=== PATIENT | female | born 1950 | race Caucasian/White ===

== ENCOUNTER 2020-08-25 12:14 | Outpatient (REF) | payer MEDICARE, OTHER, SELFPAY ==
[2020-08-25 13:59] LABS: MANUAL DIFF FLAG NO
[2020-08-25 14:11] LABS: Basophils Percent Auto 0.7 % (0-2); Eosinophils Absolute Auto 0.1 X10*3/uL (0.0-0.4); Eosinophils Percent Auto 1.1 % (0-4); Hematocrit 39.3 % (37-47); Imm Gran Abs Auto 0.02 X10*3/uL (0.00-0.03); Imm Gran Pct Auto 0.4 % (0.0-0.4); Lymphocytes Absolute Auto 1.7 X10*3/uL (1.2-4.9); Mean Corpuscular HGB Conc 33.1 g/dl (31.0-35.0); Mean Corpuscular Hemoglobin 30.4 pg (27.0-33.0); Mean Platelet Volume 9.2 fL (9.4-12.3); Monocytes Absolute Auto 0.4 X10*3/uL (0.1-1.2); Monocytes Percent Auto 8.9 % (2-11); Neutrophils Absolute Auto 2.4 X10*3/uL (2.0-8.3); Neutrophils Percent Auto 51.9 % (45-73); Platelet Count 242 X10*3/uL (160-400); Red Blood Count 4.27 X10*6/uL (4.20-5.50); Red Cell Distribution Width 12.8 % (11.0-16.0); White Blood Count 4.6 X10*3/uL (4.8-10.8)
[2020-08-25 14:29] LABS: Alanine Aminotransferase 28 U/L (0-31); Albumin Level 4.3 g/dL (3.5-5.0); Alkaline Phosphatase 39 U/L (39-117); Aspartate Amino Transferase 32 U/L (5-31); Bilirubin Direct 0.4 mg/dL (0.0-0.5); Bilirubin Total 1.2 mg/dL (0.0-1.0); C Reactive Protein 0.02 mg/dL (< or = 0.50); Total Protein 6.4 g/dL (6.5-8.0)
[2020-08-25 15:05] LABS: Erythrocyte Sedimentation Rate 2 MM/HR (0-20)
== END 2020-08-25 12:15 | disposition home or self-care (01) ==
LOC: HO.10HDL 12:14
PROVIDERS: Visit Provider Internal Medicine
DX: R19.7 Diarrhea, unspecified (principal)
CPT/HCPCS: 36415; 80076; 85025; 85652; 86140

== ENCOUNTER 2020-08-26 08:09 | Outpatient (REF) | payer MEDICARE, OTHER, SELFPAY ==
[2020-08-26 12:01] LABS: CDIFF Ag Negative (Negative); CDIFF Internal ctrl Dots and bkg OK (V); CDiff Toxin Negative (Negative)
[2020-08-26 12:31] LABS: Leukocytes Stool Qualitative NEGATIVE (NEGATIVE)
== END 2020-08-26 08:10 | disposition home or self-care (01) ==
LOC: HO.10HDLNP 08:09
PROVIDERS: Visit Provider Internal Medicine
DX: R19.7 Diarrhea, unspecified (principal)
CPT/HCPCS: 87045; 87046; 87177; 87209; 87324; 87329; 87449; 89055

== ENCOUNTER 2020-09-17 06:45 | Day surgery (SDC) | payer MEDICARE, OTHER, SELFPAY ==
[2020-09-12 11:34] VITALS: BMI 17.7
--- NOTE | 2020-09-15 14:15 | P.CONAN_ITS ---
Documented by User: Valentine Randall 09/15/20 14:16 HPI - Anesthesia Eval Consult details Narrative: 70yo F for Colonoscopy FOR[facility]LY [facility] Past Medical History Medical History History of colitis Lab test negative for COVID-19 virus Surgical History Surgical History H/O colonoscopy Social History Social History Are you a primary post anesthesia care unit nurse to a significant other at home: No Do you presently have visiting nurse or other home services: No Smoking Status: Never smoker Use of substances other than those prescribed or required for medical reasons: No Have you been hit, kicked, punched, or otherwise hurt by someone within the past year? If so, by whom?: No Advance Directives Information Provided: No Recently lost weight without trying: No Meds Allergies Allergy/AdvReac Type Severity Reaction Status Date / Time No Known Allergies Allergy Verified 09/12/20 11:38 [No Known Allergies*] Home Medications Medication Instructions Recorded Confirmed Last Taken Type cholecalciferol (vitamin D3) 25 mcg PO DAILY 09/12/20 09/12/20 Unknown History [Vitamin D3] magnesium gluconate 500 mg PO DAILY 09/12/20 09/12/20 Unknown History Exam Exam Date and Time: September 15, 2020 1415 Height,Weight and Vital Signs: Height 5 ft 6 in Weight 49.895 kg Pertinent Lab Results Pertinent Lab Results: Laboratory Tests 08/25/20 12:30 WBC 4.6 L Hgb 13.0 Hct 39.3 Plt Count 242 Assessment and Plan Assessment Anesthesia Assessment: Chart Reviewed Documented by User: Eden Sauceda 09/17/20 08:04 [facility] Past Medical History Medical History History of colitis Lab test negative for COVID-19 virus Surgical History Surgical History H/O colonoscopy Social History Social History Are you a primary post anesthesia care unit nurse to a significant other at home: No Do you presently have visiting nurse or other home services: No Smoking Status: Never smoker Use of substances other than those prescribed or required for medical reasons: No Have you been hit, kicked, punched, or otherwise hurt by someone within the past year? If so, by whom?: No Advance Directives Information Provided: No Recently lost weight without trying: No Meds Allergies Allergy/AdvReac Type Severity Reaction Status Date / Time No Known Allergies Allergy Verified 09/12/20 11:38 [No Known Allergies*] Home Medications Medication Instructions Recorded Confirmed Last Taken Type cholecalciferol (vitamin D3) 25 mcg PO DAILY 09/12/20 09/12/20 Unknown History [Vitamin D3] magnesium gluconate 500 mg PO DAILY 09/12/20 09/12/20 Unknown History Exam Airway Mallampati Class: II TM Dist: >3cm Neck ROM: Full
[2020-09-17 07:20] VITALS: BP 128/78; PULSE 58; RESP 16; TEMP 36.6; O2SAT 100
[2020-09-17] MEDS: Lactated Ringers 1,000 ML 100 ML IVCONT (07:24)
[2020-09-17 09:10] VITALS: BP 103/65; PULSE 66; RESP 15; TEMP 36.2; O2SAT 98
--- NOTE | 2020-09-17 09:13 | PM.OP ---
Brief Operative Note Date of Service: 09/17/20 Pre-op diagnosis: Change in bowels Post-op diagnosis: other (Diverticulosis, Internal/External hemorrhoids, Diminished sphincer tone) Procedure: Colonoscopy to the cecum Surgeon: Yong Ortiz Anesthesia: MAC Estimated blood loss (mL): 0 Pathology: none sent Condition: stable Disposition: PACU
[2020-09-17 09:24] VITALS: BP 99/68; PULSE 68; RESP 16; O2SAT 99
--- NOTE | 2020-09-17 09:36 | PC.NURSE ---
1230 DAVID PO MONITORS AND IVF DCD ASST OOB CH STEADY IV DC PRESSURE AND SRSG TO SITE DRESSED SELF AT BS CALL PSRING IN REACH PLAN TO AMB TO DC AREA
--- NOTE | 2020-09-17 09:54 | OP_ITS ---
SURGEON: Yong Ortiz MD INDICATIONS: The patient presents for evaluation of change in bowel habits and occasional fecal incontinence. Full consent has been obtained from her for this, including risks of bleeding and perforation. PREOPERATIVE DIAGNOSIS: POSTOPERATIVE DIAGNOSIS: PROCEDURE PERFORMED: Colonoscopy to the cecum. ESTIMATED BLOOD LOSS: COMPLICATIONS: ANESTHESIA: Monitored anesthesia care. ASSISTANTS: SPECIMENS: PREOPERATIVE DIAGNOSES: Change in bowel habits and occasional fecal incontinence. POSTOPERATIVE DIAGNOSES: Change in bowel habits, occasional fecal incontinence, diverticulosis, diminished sphincter tone, and internal hemorrhoids. DESCRIPTION OF PROCEDURE: The patient was placed in the left lateral decubitus position. The digital rectal exam did reveal diminished sphincter tone as well as some hemorrhoidal tissue. The Olympus video pediatric colonoscope was entered into the rectum and advanced to the cecum with the assistance of abdominal wall pressure. Once in the cecum I did identify normal-appearing cecal pouch with appendiceal orifice and a normal-appearing ileocecal valve. There was transillumination of light deep in the right lower quadrant. The entire cecum and ileocecal valve appeared normal. The scope was slowly withdrawn assessing all mucosal surfaces carefully. Preparation was excellent. I did not visualize any sign of polyps, colitis, nor angiodysplasia. There was a mild amount of sigmoid diverticulosis. In the rectum, scope was retroflexed visualizing some internal hemorrhoids, but no other pathology. The rectal mucosa appeared normal. The scope was straightened and withdrawn from the patient. She tolerated the procedure well and was returned to recovery area in stable condition. IMPRESSION: 1. Sigmoid diverticulosis. 2. Internal and external hemorrhoids. 3. Diminished sphincter tone. PLAN: Given the negative exam, and a negative colonoscopy in 2017, as well as no family history of colorectal cancer, I do not think she will need any further screening colonoscopies. In regard to her occasional symptoms of incontinence, this may be difficult to treat from a symptomatic standpoint since the episodes are infrequent and unpredictable. I did recommend that she consider adding a little Metamucil or Citrucel to her regimen to see if that can help decrease any liquid component to the stool and add some bulk. She will be seen in two or three months for a followup visit. If her symptoms persist and prove problematic, then I would recommend referring her to one of the colorectal surgeons in [place] to see if they might have any advice since I feel her diminished sphincter tone plays a role in these symptoms.. MD BRIDGETT Doherty/SARAH / [id number] KEKE
== END 2020-09-17 09:52 | disposition home or self-care (01) ==
PROVIDERS: PCP Family Medicine; Visit Provider Internal Medicine
PROC: 0DJD8ZZ Inspection of Lower Intestinal Tract, Via Natural or Artificial Opening Endoscopic (ICD-10-PCS; CPT 45378; principal; 2020-09-17 08:10)
DX: R19.4 Change in bowel habit (principal); R15.9 Full incontinence of feces; K62.89 Other specified diseases of anus and rectum; K57.30 Diverticulosis of large intestine without perforation or abscess without bleeding; K64.8 Other hemorrhoids; K64.4 Residual hemorrhoidal skin tags
CPT/HCPCS: 45378

== ENCOUNTER 2021-03-27 08:39 | Outpatient (REF) | payer MEDICARE, OTHER, SELFPAY ==
--- NOTE | ~2021-03-27 | MM_ITS ---
EXAMINATION: MM SCREENING DIGITAL BREAST TOMOSYNTHESIS, BILATERAL CLINICAL INFORMATION: Screening. Asymptomatic. The lifetime risk of breast cancer based on the Tyrer-Cuzick Model is 3%. COMPARISON: Mammography: 03/21/2020, 10/13/2018, 09/28/2017, 09/19/2017 TECHNIQUE: Digital breast tomosynthesis is performed in both the craniocaudal and mediolateral oblique views along with computer-aided detection (CAD). Synthesized 2D images are generated from the tomosynthesis. FINDINGS: The breasts are heterogeneously dense, which may obscure small masses (ACR BI-RADS breast composition Category c). There are no significant masses, abnormal calcifications, or other abnormalities. There is no developing density. No interval mass or architectural abnormality. Again, there is a biopsy clip marker mid 12:00 left breast adjacent to small stable nodule. MM/MM tomosynthesis screening BI IMPRESSION: No mammographic evidence of malignancy. ASSESSMENT: BI-RADS 2: Benign RECOMMENDATION: Routine annual mammography screening. This patient's information was entered into a reminder system with a target due date for their next mammogram.
== END 2021-03-27 08:40 | disposition home or self-care (01) ==
LOC: HO.MAMMO 08:39
PROVIDERS: PCP Family Medicine; Visit Provider Family Medicine
DX: Z12.31 Encounter for screening mammogram for malignant neoplasm of breast (principal)
CPT/HCPCS: 77063; 77067

== ENCOUNTER 2022-01-06 07:50 | Outpatient (REF) | payer MEDICARE, OTHER, SELFPAY ==
--- NOTE | ~2022-01-06 | MM_ITS ---
EXAMINATION: MM DIAGNOSTIC DIGITAL BREAST TOMOSYNTHESIS, BILATERAL US DIAGNOSTIC ULTRASOUND BREAST, LEFT CLINICAL INFORMATION: 2 month history intermittent pain left breast 1:00-3:00, 9:00-10:00, and axilla. No known family history breast cancer. The lifetime risk of breast cancer based on the Tyrer-Cuzick Model is 3%. COMPARISON: Mammography: 03/27/2021, 03/21/2020, 10/13/2018, 09/28/2017 TECHNIQUE: Digital breast tomosynthesis is performed in both the craniocaudal and mediolateral oblique views along with computer-aided detection (CAD). Synthesized 2D images are generated from the tomosynthesis. Additional right CC view is provided. Ultrasound left breast is targeted to the areas of clinical concern. Additional imaging also performed left axilla. Grayscale imaging and color Doppler are performed without and with harmonics. FINDINGS: The breasts are heterogeneously dense, which may obscure small masses (ACR BI-RADS breast composition Category c). Parenchymal pattern is similar to prior studies. There is no interval mass or architectural abnormality or developing density. No abnormal calcifications. Biopsy clip marker again noted mid 12:00 left breast. There is no adenopathy. No skin thickening or retraction or coarsening of the Hernan's ligaments. Ultrasound demonstrates no cystic or solid mass, architectural abnormality, or focal duct ectasia. No skin thickening or edema tracking in soft tissue planes. No adenopathy left axilla. Results are discussed with the patient at time of visit. MM/MM tomosynthesis diagnostic BI IMPRESSION: -No mammographic evidence of malignancy or inflammatory changes. -Unremarkable ultrasound left breast and axilla. ASSESSMENT: BI-RADS 2: Benign RECOMMENDATION: 1. Patient's intermittent left mastodynia should be managed based on the clinical impression. 2. Otherwise, routine annual screening mammography. This patient's information was entered into a reminder system with a target due date for their next mammogram.
== END 2022-01-06 07:51 | disposition home or self-care (01) ==
LOC: HO.MAMMO 07:50
PROVIDERS: Visit Provider Nurse Practitioner
DX: N64.4 Mastodynia (principal)
CPT/HCPCS: 76642; 77062; 77066

== ENCOUNTER 2022-07-06 06:33 | Outpatient (REF) | payer MEDICARE, OTHER, SELFPAY ==
[2022-07-06 07:57] LABS: Anion Gap 13 (12-20); Blood Urea Nitrogen 21 mg/dL (9-16); Calcium 9.2 mg/dL (8.4-10.2); Carbon Dioxide 24 mmol/L (22-29); Chloride 105 mmol/L (96-108); Cholesterol 207 mg/dL; Estimated Glomerular Filt Rate > 60; Glucose Random 79 mg/dL (60-115); HDL Cholesterol 83 mg/dL; LDL Cholesterol Calculated 114 mg/dl; Potassium 4.2 mmol/L (3.3-5.1); Sodium 138 mmol/L (135-145); Triglycerides 53 mg/dL
== END 2022-07-06 06:34 | disposition home or self-care (01) ==
LOC: HO.LAB 06:33
PROVIDERS: PCP Family Medicine; Visit Provider Family Medicine
DX: Z00.00 Encounter for general adult medical examination without abnormal findings (principal)
CPT/HCPCS: 36415; 80048; 80061

== ENCOUNTER 2022-07-13 07:53 | Outpatient (REF) | payer MEDICARE, OTHER, SELFPAY ==
--- NOTE | ~2022-07-13 | MM_ITS ---
EXAMINATION: BONE DENSITOMETRY CLINICAL INDICATION: Osteopenia. COMPARISON: Previous BD dated 02/01/2019 and baseline BD dated 08/29/2006. TECHNIQUE: Using a [employer] DXA System (software version: 13.1) manufactured by [employer], dual-energy x-ray absorptiometry was performed of the lumbar spine and left hip. The images are of good technical quality. Summary results are attached. FINDINGS: AP SPINE L1-L2 (excluding L3 and L4): The data of L1-L4 has been changed to exclude the L3 and L4 vertebral bodies, because degenerative changes at these levels may cause overestimation of lumbar spine density. Current: BMD 0.921 g/cm2, Z-score 0.2, T-score -2.0, osteopenia, 1.3% increase from previous, 4.4% decrease from baseline (<5% change is not significant). Prior: BMD 0.909 g/cm2. Baseline: BMD 0.963 g/cm2. LEFT FEMUR, NECK: Current: BMD 0.775 g/cm2, Z-score 0.3, T-score -1.9, osteopenia. Prior: BMD 0.834 g/cm2. Baseline: BMD 0.960 g/cm2. LEFT FEMUR, TOTAL: Current: BMD 0.743 g/cm2, Z-score -0.1, T-score -2.1, osteopenia, 10.2% decrease from previous, 25.6% decrease from baseline (<5% change is not significant). Prior: BMD 0.827 g/cm2. Baseline: BMD 0.998 g/cm2. IDENTIFIED RISK FACTORS: Menopause. HISTORY OF FRACTURE: None listed. MEDICATIONS: Vitamin D. MM/XR DEXA axial skeleton IMPRESSION: 1. DIAGNOSIS: Osteopenia based on the lowest T-score value of -2.1 in the total femur applying World Health Organization criteria. 2. 10-YEAR FRACTURE RISK PREDICTION, FRAX: Major osteoporotic fracture (clinical spine, forearm, hip or shoulder) 10.0%. Hip fracture 2.4%. 3. Treatment Recommendations: NOF guidelines recommend consideration for treatment in postmenopausal women and men age 50 and older presenting with the following: -A hip or vertebral (clinical or morphometric) fracture. -T-score less than or equal to -2.5 at the femoral neck or spine after appropriate evaluation to exclude secondary causes. -Low bone mass at the hip or spine and a 10-year fracture probability by FRAX of greater than or equal to 3% for hip fracture or greater than or equal to 20% for major osteoporotic fracture based on the [place] adapted WHO algorithm. 4. Other Recommendations: All treatment decisions require clinical judgment and consideration of individual patient factors, including patient preferences, comorbidities, previous drug use, risk factors not captured in the FRAX model (e.g. frailty, falls, vitamin D deficiency, increased bone turnover, interval significant decline in bone density) and possible under or overestimation of fracture risk by FRAX. Additional medical evaluation for secondary cause of low bone mineral density may be appropriate. FUTURE SCAN RECOMMENDATION: People with diagnosed cases of osteoporosis or at high risk for fracture should have regular bone mineral density tests. For patients eligible for Medicare, routine testing is allowed once every 2 years. The testing frequency can be increased to one year for patients who have rapidly progressing disease, those who are receiving or discontinuing medical therapy to restore bone mass, or have additional risk factors.
== END 2022-07-13 07:54 | disposition home or self-care (01) ==
LOC: HO.MAMMO 07:53
PROVIDERS: PCP Family Medicine; Visit Provider Family Medicine
DX: Z13.820 Encounter for screening for osteoporosis (principal); Z78.0 Asymptomatic menopausal state; M85.80 Other specified disorders of bone density and structure, unspecified site
CPT/HCPCS: 77080

== ENCOUNTER 2023-01-17 09:50 | Outpatient (REF) | payer MEDICARE, OTHER, SELFPAY ==
--- NOTE | ~2023-01-17 | MM_ITS ---
EXAMINATION: MM SCREENING DIGITAL BREAST TOMOSYNTHESIS, BILATERAL CLINICAL INFORMATION: Screening. Asymptomatic. The lifetime risk of breast cancer based on the Tyrer-Cuzick Model is 10%. COMPARISON: None (current study represents initial baseline exam). TECHNIQUE: Digital breast tomosynthesis is performed in both the craniocaudal and mediolateral oblique views along with computer-aided detection (CAD). Synthesized 2D images are generated from the tomosynthesis. Additional left MLO view provided. FINDINGS: The breasts are heterogeneously dense, which may obscure small masses (ACR BI-RADS breast composition Category c). There are no significant masses, abnormal calcifications, or other abnormalities. Parenchymal pattern is similar to prior studies. There is no developing density or architectural abnormality. No architectural abnormality or developing density or significant change from prior studies. There are scattered shifting fibroglandular parenchymal densities related to variation in positioning. No developing density or significant changes. The axilla and skin contours are unremarkable. No significant changes. MM/MM tomosynthesis screening BI IMPRESSION: No significant changes from prior exam. ASSESSMENT: BI-RADS 0: Incomplete - Need Additional Imaging Evaluation RECOMMENDATION: 1. Additional views left breast: Magnification CC magnification ML. 2. Radiology department staff will contact the patient for additional imaging. This patient's information was entered into a reminder system with a target due date for their next mammogram.
== END 2023-01-17 09:51 | disposition home or self-care (01) ==
LOC: HO.MAMMO 09:50
PROVIDERS: PCP Family Medicine; Visit Provider Family Medicine
DX: Z12.31 Encounter for screening mammogram for malignant neoplasm of breast (principal)
CPT/HCPCS: 77063; 77067

== ENCOUNTER 2024-01-23 07:19 | Outpatient (REF) | payer MEDICARE, OTHER, SELFPAY ==
--- NOTE | ~2024-01-23 | MM_ITS ---
EXAMINATION: MM SCREENING DIGITAL BREAST TOMOSYNTHESIS, BILATERAL CLINICAL INFORMATION: Screening. Asymptomatic. COMPARISON: Mammography: This study is compared with prior exams dating back to 2019. TECHNIQUE: Digital breast tomosynthesis is performed in both the craniocaudal and mediolateral oblique views along with computer-aided detection (CAD). Synthesized 2D images are generated from the tomosynthesis. FINDINGS: There are scattered areas of fibroglandular density (ACR BI-RADS breast composition Category b). In the superior aspect of the right breast, at a middle depth, there is an asymmetry which warrants additional mammographic and targeted sonographic imaging. In the left breast, there are no significant masses, abnormal calcifications, or other abnormalities. There is a biopsy tissue marker in the left breast. MM/MM tomosynthesis screening BI IMPRESSION: Asymmetry of the right breast warrants additional mammographic and targeted sonographic imaging. No mammographic signs of malignancy left breast. ASSESSMENT: BI-RADS BI-RADS 0 - Incomplete: Needs additional Imaging. RECOMMENDATION: 1. Additional views of the right breast. 2. Targeted ultrasound if warranted after review of the additional views. 3. Radiology department staff will contact the patient for additional imaging. Additional Imaging required This examination should not preclude the clinical evaluation of a suspicious palpable abnormality. This patient's information was entered into a reminder system with a target due date for their next mammogram.
== END 2024-01-23 07:20 | disposition home or self-care (01) ==
LOC: HO.MAMMO 07:19
PROVIDERS: PCP Family Medicine; Visit Provider Family Medicine
DX: Z12.31 Encounter for screening mammogram for malignant neoplasm of breast (principal)
CPT/HCPCS: 77063; 77067

== ENCOUNTER → 2024-01-23 07:30 | Outpatient (BNV) | payer MEDICARE, OTHER, SELFPAY | PROVIDERS: PCP Family Medicine; Visit Provider Radiology Diagnostic Radiology | DX: Z12.31 Encounter for screening mammogram for malignant neoplasm of breast (principal) | CPT/HCPCS: 77063; 77067 ==

== ENCOUNTER 2024-02-29 07:49 | Outpatient (REF) | payer MEDICARE, OTHER, SELFPAY ==
--- NOTE | ~2024-02-29 | US_ITS ---
EXAMINATION: MM DIAGNOSTIC DIGITAL BREAST TOMOSYNTHESIS, RIGHT US BREAST LIMITED, RIGHT MAMMOGRAPHY: CLINICAL INFORMATION: Diagnostic follow-up for asymmetry superior right breast seen on MLO projection. COMPARISON: Mammography: 01/23/2024, 01/17/2023, 01/06/2022, 03/27/2021, and exams dating back to 2018. TECHNIQUE: Digital right breast tomosynthesis is performed in the following views: Full-field 3-D right ML view, and 3-D spot compression right MLO view. This was followed by targeted right breast ultrasound to the axillary tail region. FINDINGS: The breasts are heterogeneously dense, which may obscure small masses (ACR BI-RADS breast composition Category c). Diagnostic views demonstrate no persistent mass or architectural distortion in the upper outer right breast. The finding appears to be related to superimposition artifact of overlying normal breast tissues. To be cautious, we will evaluate this region with ultrasound. No additional abnormality seen in the right breast. ULTRASOUND: CLINICAL INFORMATION: As above. COMPARISON: None contributory. TECHNIQUE: Targeted sonographic evaluation was performed using a high frequency linear transducer. Attention was given to the upper outer right breast, axillary tail region. Selected archived documentation. FINDINGS: RIGHT BREAST: There is a mixture of fatty and fibroglandular tissue. No suspicious mass is seen. There is no pathologic acoustic shadowing. There is no cystic abnormality. Prominent island of tissue is noted in the axillary tail region, accounting for the asymmetric density seen on the MLO and ML views. Finding is benign. There are no suspicious findings. US/US breast RT limited mamm only IMPRESSION: There are no findings suspicious for malignancy in the right breast. There are benign findings as discussed above. Recommend patient return to routine annual screening mammography. OVERALL ASSESSMENT: Mammography: BI-RADS 2 - Benign Findings Ultrasound: BI-RADS 2 - Benign Findings RECOMMENDATION: 1 year F/U This patient's information was entered into a reminder system with a target due date for their next mammogram.
== END 2024-02-29 07:50 | disposition home or self-care (01) ==
LOC: HO.MAMMO 07:49
PROVIDERS: PCP Family Medicine; Visit Provider Family Medicine
DX: R92.8 Other abnormal and inconclusive findings on diagnostic imaging of breast (principal)
CPT/HCPCS: 76642; 77061; 77065

== ENCOUNTER → 2024-02-29 08:00 | Outpatient (BNV) | payer MEDICARE, OTHER, SELFPAY | PROVIDERS: PCP Family Medicine; Visit Provider Radiology Diagnostic Radiology | DX: R92.8 Other abnormal and inconclusive findings on diagnostic imaging of breast (principal) | CPT/HCPCS: 76642; 77065; G0279 ==

== ENCOUNTER 2024-05-28 08:24 | Outpatient (REF) | payer MEDICARE, OTHER, SELFPAY ==
[2024-05-28 09:49] LABS: Leukocytes Stool Qualitative NEGATIVE (NEGATIVE)
[2024-05-28 16:36] LABS: Adenovirus F 40/41 Not Detected (Not Detect.); Astrovirus Not Detected (Not Detect.); Campylobacter Not Detected (Not Detect.); Cryptosporidium Not Detected (Not Detect.); Cyclospora cayetanensis Not Detected (Not Detect.); E. coli EAEC Detected (Not Detect.); E. coli EPEC Not Detected (Not Detect.); E. coli ETEC Not Detected (Not Detect.); E. coli STEC Not Detected (Not Detect.); Entamoeba histolytica Not Detected (Not Detect.); Giardia lamblia Not Detected (Not Detect.); Norovirus GI/GII Not Detected (Not Detect.); Plesiomonas shigelloides Not Detected (Not Detect.); Rotavirus A Not Detected (Not Detect.); Salmonella Not Detected (Not Detect.); Sapovirus Not Detected (Not Detect.); Shigella sp./EIEC Not Detected (Not Detect.); Vibrio Not Detected (Not Detect.); Vibrio Cholerae Not Detected (Not Detect.); Yersinia enterocolitica Not Detected (Not Detect.)
[2024-06-07 02:13] LABS: Calprotectin, Fecal 55 mcg/g
== END 2024-05-28 08:25 | disposition home or self-care (01) ==
LOC: HO.LNP 08:24
PROVIDERS: Visit Provider Internal Medicine
DX: R19.7 Diarrhea, unspecified (principal)
CPT/HCPCS: 83993; 87493; 87507; 89055

== ENCOUNTER 2024-08-22 08:28 | Outpatient (REF) | payer MEDICARE, OTHER, SELFPAY ==
--- NOTE | ~2024-08-22 | MM_ITS ---
EXAMINATION: DXA BONE DENSITY AXIAL HISTORY: Estrogen deficiency TECHNIQUE: [employer] Dual energy absorptiometry (DEXA) of the lumbar spine, total left hip, and femoral neck was performed. COMPARISON: Comparison is made with the prior examination dated 07/13/2022. FINDINGS: The bone mineral density of the lumbar spine is 0.855 with a T-score of -2.6, and a Z-score of -0.3. This represents a BMD change of -7.2% compared to the prior exam. This is statistically significant. The bone mineral density of the left total hip is 0.765 with a T-score of -1.9, and a Z-score of 0.2. This represents BMD change of 3.0% compared to the prior exam. This is not statistically significant. The bone mineral density of the left femoral neck is 0.747 with a T-score of -2.1, and a Z-score of 0.2. This represents BMD change of -3.6% compared to the prior exam. MM/XR DEXA axial skeleton IMPRESSION: Based on bone mineral density, and according to World Health Organization (WHO) criteria, the diagnosis is consistent with osteoporosis. All bone density values are in grams per centimeter squared (g/cm2). Statistically, 68% of repeat scans fall within 1 SD (+/- 0.010 g/cm2 for AP spine L1-L4) and 1 SD (+/- 0.012 g/cm2 for femur total) FRAX is a trademark of the [employer]'s [place] for Metabolic Bone Disease, a World Health Organization (WHO) Collaborating Center. Electronically signed by: Yong Gamble MD 08/27/2024 11:43 AM [facility]
--- OUTSIDE RECORDS SUMMARY | 2024-08-22 08:44 | XMS_ITS | Patient Health Record ---
Author Organization [facility] Address [address] [place] [address] Care Team Providers Care Interactive Media Marketing Strategist Name Role Phone MARYBEL ALBERTS DO Primary Care Provider Yong Calderon Unavailable [phone] JOHNNIEONEL KENYON Unavailable Unavailable ALLERGIES No Known Allergies RESULTS Component Value Reference Range Notes Calprotectin, Fecal Reviewed date:07/07/2024 09:32:11 AM Interpretation: Performing Lab:[facility], [address] [place] [phone] Notes/Report: Calprotectin, Fecal 55 Reference Range: <50 Normal 50-120 Borderline >120 Elevated Calprotectin in Crohn's disease and ulcerative colitis can be five to several thousand times above the reference population (50 mcg/g or less). Levels are usually 50 mcg/g or less in healthy patients and with irritable bowel syndrome. Repeat testing in 4-6 weeks is suggested for borderline values. THIS TEST WAS PERFORMED AT: [facility] [address] [place] [address] CINTHIA LOPEZ MD,PHD,GEOVANNY GI PANEL Reviewed date:05/29/2024 09:00:49 AM Interpretation: Performing Lab:[address] [phone] Notes/Report: Campylobacter Not Detected Not Detect. Plesiomonas shigelloides Not Detected Not Detect. Salmonella Not Detected Not Detect. Vibrio Not Detected Not Detect. Vibrio Cholerae Not Detected Not Detect. Yersinia enterocolitica Not Detected Not Detect. E. coli EAEC Detected Not Detect. E. coli EPEC Not Detected Not Detect. E. coli ETEC Not Detected Not Detect. E. coli STEC Not Detected Not Detect. E. coli O157 Not applicable Not Detect. E. coli containing the O157 antigen are a subset of Shiga-like toxin-producing E. coli (STEC). Shigella sp./EIEC Not Detected Not Detect. Cryptosporidium Not Detected Not Detect. Cyclospora cayetanensis Not Detected Not Detect. Entamoeba histolytica Not Detected Not Detect. Giardia lamblia Not Detected Not Detect. Adenovirus F 40/41 Not Detected Not Detect. Astrovirus Not Detected Not Detect. Norovirus GI/GII Not Detected Not Detect. Rotavirus A Not Detected Not Detect. Sapovirus Not Detected Not Detect. All results must be correlated with clinical findings. Negative results do not exclude the possibility of gastrointestinal infection and should not be used as the sole basis for diagnosis, treatment, or other management decisions. Virus, bacteria, and parasite nucleic acid may persist in vivo independently of organism viability. Additionally, some organisms may be carried asymptomatically. Detection of organism targets does not imply that the corresponding organisms are infectious or are the causative agents for clinical symptoms. There is a risk of false negative values due to the presence of sequence variants in the gene targets of the assay, amplification inhibitors in specimens, or inadequate numbers of organisms for amplification. The identification of several diarrheagenic E. coli pathotypes has historically relied upon phenotypic characteristics. This panel targets genetic determinants characteristic of most pathogenic strains, but may not detect all strains having phenotypic characteristics of a pathotype. The performance of this test has not been established for monitoring treatment of infection with any of the panel organisms. This assay is performed by Multiplexed PCR, utilizing the [employer]-box Array. Leukocytes Stool Qualitative Reviewed date:05/28/2024 02:38:08 PM Interpretation: Performing Lab:[address] [phone] Notes/Report: Leukocytes Stool Qualitative NEGATIVE NEGATIVE CDiff Gene PCR Reviewed date:05/28/2024 10:48:07 PM Interpretation: Performing Lab:[address] [phone] Notes/Report: CDiff Gene PCR TNP Negative INVALID X2. NOTIFIED TAYLOR FROM PROVIDER'S OFFICE 05/28 AT 1518. REASON FOR REFERRAL No Information MEDICATIONS Medication SIG (Take, Route, Fr equency, Duration) Notes Start Date End Date Status Vitamin D 1000 UNIT 1 tablet Orally Once a day Active IMMUNIZATIONS Vaccine Route Administration Date Status Comme nts Influenza Unknown 03/25/2017 Administered Influenza Unknown 04/24/2020 Administered SOCIAL HISTORY Tobacco Use: Social History Observation Description Date Details (start date - stop date) Never Smoker NA - NA Sex Assigned At : Social History Observation Description Sex Assigned At Unknown Tobacco Use/Smoking Question Answer Notes Patient is a nonsmoker Alcohol Screen Question Answer Notes Did you have a drink contain ing alcohol in the past year? Yes How often did you have a dri nk containing alcohol in the past year? 4 or more times a week (4 points) How many drinks did you have on a typical day when you were drinking in the past year? 1 or 2 drinks (0 point) How often did you have 6 or more drinks on one occasion in the past year? Never (0 point) Points 4 Interpretation Positive PROBLEMS Problem Type ICD Code Onset Dates Problem Status W/U Status Risk SNOMED Code Notes Problem Acute colitis (K52.9) Active confirmed 819726767 Problem Diarrhea, unspecified type (R19.7) Active confirmed 43227517 Problem Blood in stool (K92.1) Active confirmed 40665341 Problem Weight loss (R63.4) Active confirmed 30095377 Problem Abdominal cramps (R10.9) Active confirmed 416063030 Problem Diarrhea (R19.7) Active confirmed Diarr hea (08447158) Problem Change in bowel habits (R19.4) Active confirmed Change in bow el habit (22037160) Problem Full incontinence of feces (R15.9) Active confirmed Incontinence o f feces (64447157) Problem Fecal soiling due to fecal incontinence (R15.9) Active confirmed 121048147136661 Problem Chronic diarrhea (K52.9) Active confirmed Chronic diarrhe a (889630575) Encounters Encounter Location Date Provider Diagnosis [facility] [address] [place] [address] 05/24/2024 Yong Ortiz Diarrhea R19.7 [facility] [address] [place] [address] 05/28/2024 Yong Ortiz Chronic diarrhea K52.9 [facility] [address] [place] [phone] 05/28/2024 Yong Ortiz ASSESSMENTS Encounter Date Diagnosis Assessment Notes Treatment Notes Treatment Clinical Notes 05/24/2024 Diarrhea (ICD-10 - R19.7) 05/28/2024 Chronic diarrhea (ICD-10 - K52.9) PLAN OF TREATMENT Pending Test Test Name Order Date LIVER PROFILE 08/24/2020 LIVER PROFILE 07/12/2017 CRP 08/24/2020 CRP 07/12/2017 CBC w DIFF 08/24/2020 CBC with MANUAL DIFFERENTIAL 07/12/2017 SED RATE (ESR) 07/12/2017 SED RATE (ESR) 08/24/2020 CELIAC PANEL #10 07/12/2017 GIARDIA AG, STOOL EIA 08/24/2020 OVA & PARASITES (O&P) 08/24/2020 CULTURE, STOOL 08/24/2020 STOOL WBC 05/24/2024 STOOL WBC 08/24/2020 C DIFFICILE RFLX PCR 05/24/2024 C DIFFICILE RFLX PCR 05/28/2024 C DIFFICILE RFLX PCR 08/24/2020 Future Test Test Name Order Date COLONOSCOPY 07/07/2017 COLONOSCOPY 08/27/2020 Insurance Providers Payer Name Payer Address Payer Phone Subscriber Number Group Number Insured Name Patient Relationship to Insured Coverage Start Date Coverage End Date MEDICARE OF [place] [address] [place] [address] [id number] JAZMINE LERNER Self - patient is the insured [facility] [address] [place] [address] [id number] JAZMINE LERNER Self - patient is the insured MEDICAL (GENERAL) HISTORY Medical History History ICD Code Denies DC,DM,CVA,Lung disease,renal dise ase Acute colitis-admitted to [facility] on 06/24/17--CT scan showed evidence of apparent colitis extending from the rectum to the distal transverse colon--- stool specimens were not collected--she was treated with Levaquin and Flagyl--- a colonoscopy later in 06/2017 was completely normal, including biopsies--there was no evidence of any ongoing colitis. Screening Colonoscopy in 201 4 in [place]--told of polyps and need to repeat the exam in 5 years Negative colonoscopy in 09/13 21 except for decreased sphincer tone, internal/external hemorhoids, and diverticulosis Negtive antigliadin antibodies in 2017 Surgical History Surgery Date(Month/Year)
--- OUTSIDE RECORDS SUMMARY | 2024-08-22 08:44 | XMS_ITS ---
Author Organization [facility] Address [address] [place] [address] Care Team Providers Care Residential Counselor Name Role Phone MARYBEL ALBERTS DO Primary Care Provider Unava ilable Yong Ortiz Unavailable [phone] ONEL BARNETT Unavailable Unavailable Encounters Encounter Location Date Provider Diagnosis [facility] [address] [place] [address] 05/28/2024 Yong Ortiz PLAN OF TREATMENT No Information
--- OUTSIDE RECORDS SUMMARY | 2024-08-22 08:44 | XMS_ITS ---
Author Organization [facility] Address [address] [place] [address] Care Team Providers Care Medical Lead Name Role Phone MARYBEL ALBERTS DO Primary Care Provider Yong Calderon Unavailable [phone] ONEL BARNETT Unavailable Unavailable RESULTS Component Value Reference Range Notes Calprotectin, Fecal Reviewed date:07/07/2024 09:32:11 AM Interpretation: Performing Lab:[facility], [address] [place] [phone] Notes/Report: Calprotectin, Fecal 55 Reference Range: <50 [...] borderline values. THIS TEST WAS PERFORMED AT: [facility] [address] [place] [address] CINTHIA LOPEZ MD,PHD,GEOVANNY GI PANEL Reviewed date:05/29/2024 09:00:49 AM Interpretation: Performing Lab:[facility], [address] [place] [phone] Notes/Report: Campylobacter Not Detected Not Detect. Plesiomonas [...] is performed by Multiplexed PCR, utilizing the [employer] Array. REASON FOR VISIT stomach not right Encounters Encounter Location Date Provider Diagnosis [facility] [address] [facility] [address] [place] [address] 05/24/2024 Yong Ortiz Diarrhea R19.7 ASSESSMENTS Encounter Date Diagnosis Assessment Notes Treatment Notes Treatment Clinical Notes 05/24/2024 Diarrhea (ICD-10 - R19.7) PLAN OF TREATMENT Pending Test Test Name Order Date STOOL WBC 05/24/2024 C DIFFICILE RFLX PCR 05/24/2024
== END 2024-08-22 08:29 | disposition home or self-care (01) ==
LOC: HO.MAMMO 08:28
PROVIDERS: PCP Family Medicine; Visit Provider Family Medicine
DX: Z13.820 Encounter for screening for osteoporosis (principal); M85.89 Other specified disorders of bone density and structure, multiple sites
CPT/HCPCS: 77080

== ENCOUNTER → 2024-08-22 08:45 | Outpatient (BNV) | payer MEDICARE, OTHER, SELFPAY | PROVIDERS: PCP Family Medicine; Visit Provider Radiology Diagnostic Radiology | DX: M85.80 Other specified disorders of bone density and structure, unspecified site (principal); E28.39 Other primary ovarian failure | CPT/HCPCS: 77080 ==

== ENCOUNTER 2025-02-13 07:28 | Outpatient (REF) | payer MEDICARE, OTHER, SELFPAY ==
--- OUTSIDE RECORDS SUMMARY | 2025-02-13 07:30 | XMS_ITS | Clinical Summary ---
Author Organization [facility] Address [address] [employer] [address] [facility] [address] [place] [address] Phone Care Team Providers Care Abrasive Wheel Molder Name Role Phone Kamille Bianchi MD, MPH Primary Care Provid er Christopher Muse MD Unavailable [phone] Yong Ortiz MD Unavailable [phone] Kamille Bianchi MD, MPH Unavailable [phone]- [phone] Allergies No known active allergies Medications cholecalciferol (VITAMIN D3) 2,000 unit capsule Take by mouth daily. Active gabapentin (NEURONTIN) 300 MG capsule Take 300 mg by mouth nightly at bedtime. 3 Active lactobacillus combination no.4 (PROBIOTIC) 3 billion cell Cap 5 Active methylcellulose, laxative, (CITRUCEL) Powd Take 2 g by mouth daily. Per pt Active bismuth subsalicylate (PEPTO BISMOL) 262 mg/15 mL suspension Take 15 mL by mouth every 6 (six) hours as needed for indigestion. Per pt Active rifAXIMin (XIFAXAN) 550 mg Tab Take 1 tablet (550 mg total) by mouth 3 (three) times a day for 14 days. 42 tablet 5 02/26/20 25 Active Active Problems Problem Noted Date Diagnosed Date Breast pain, left 01/01/2022 Assessment & Plan (01/01/2022 9:13 AM EDT): Unclear etiology for breast discomfort. Ultrasound and mammogram ordered. Encouraged use of warm compress. Consider NSAID pain medications. Change in bowel habit 12/03/2021 Diarrhea 12/03/2021 Hematochezia 12/03/2021 Noninfective enterocolitis 12/03/2021 Weight loss 12/03/2021 Full incontinence of feces 01/13/2021 Assessment & Plan (07/11/2024 10:37 AM EST): Assessment & Plan (01/13/2021 10:34 PM EDT): Cont following with GI. Improving on citrucel. Reviewed FODMAPs diet which may contribute. Osteopenia after menopause 07/31/2019 Assessment & Plan (01/13/2021 10:32 PM EDT): Cont weight bearing exercise and Vit D Primary osteoarthritis of right hand 07/31/2019 Resolved Problems Problem Noted Date Diagnosed Date Resolved Date Anxiety 07/31/2019 01/13/2021 Encounters Date Type Department Care Team Description 02/12/2025 Telephone [facility] [address] [address] [place] 02/12/2025 Telephone [facility] [address] [place] [address] [place] 02/11/2025 10:30 AM EDT Office Visit [facility] [address] [place] [address] Dannie Payton MD Irritable bowel syndrome with diarrhea (Primary Dx); History of colonic polyps from Last 3 Months Immunizations Immunization Administration Dates Next Due COVID-19 (Pre-05/16) Moderna Vaccine, mRNA, PF 10/17/2020,09/18/2020 Hepatitis A, Adult 06/09/2017 Influenza High-Dose Quadriva lent Preservative Free IM 05/05/2023,04/19/2022,04/22/2021,04/23 Influenza High-Dose Trivalen t Preservative Free IM 04/27/2024,04/27/2017 Influenza Quadrivalent Prese rvative Free IM 04/23/2015 Influenza Quadrivalent w/ Pr eservative IM 05/08/2014 Influenza Trivalent Adjuvant ed Preservative free IM 04/22/2019,04/28/2018 Influenza Trivalent w/ Preservative IM 0,03/25/2017,05/23/2013 Pneumococcal conjugate PCV13 02/26/2016,07/25/19 16 Pneumococcal polysaccharide PPSV23 03/30/2019, RSV Vaccine (monovalent, adjuvanted) 07/28/2023 Td (adult) 5 Lf Tetanus Toxo id, PF, Adsorbed 12/27/2018 Tdap 07/25/2011 Typhoid, ViCPs 06/09/2017 Zoster live 10/09/2012,07/25/2011 Zoster recombinant 05/14/2019,02/07/2019 Family History Medical History Relation Comments Anxiety disorder Daughter Aneurysm Father secondary to bra in aneurysm Heart attack Mother No Known Problems Sister Anxiety disorder Son Breast cancer Neg Hx Colon cancer Neg Hx Pancreatic cancer Neg Hx Relation Status Comments Daughter Father Mother (Age 65) Sister Alive Son Social History Tobacco Use Types Packs/Day Years Used Date Smoking Tobacco: Never Smokeless Tobacco: Never Tobacco Cessation:Counseling Given: Not Answered Alcohol Use Standard Drinks/Week Comments Yes 0 (1 standard drink = 0.6 oz pur e alcohol) wine with dinner Child or Family Care Answer Date Record ed Do you have problems with on e of the following making it difficult for you to work, study, or receive health care? No 07/11/2024 Education Answer Date Recorded Are you interested in more education? Not on conrad e 07/04/2024 Are you concerned about learning? Not on file 07/04/2024 No 07/04/2024 No 07/04/2024 Food Answer Date Recorded Within the past 6 months we worried whether our food would run out before we got money to buy more. Never True 07/11/2024 Within the past 6 months the food we bought just didn't last and we didn't have enough money to get more. Never True Residential Stability Answer Date Recor ded What is your housing situation today? I have toro sing 07/11/2024 How many times have you move d in the past 12 months? Zero (I did not move) 07/11/2024 Paying for Meds Answer Date Recorded Do you have trouble paying for medicines? No 07/11/2024 Paying Utility Bills Answer Date Record ed Do you have trouble paying your heating or elect ricity bill? No 07/11/2024 Transportation Answer Date Recorded Has the lack of transportati on kept you from medical appointments or from getting medications? No 07/11/2024 Unemployment Answer Date Recorded Are you currently unemployed or working on a part-time or temporary basis, and looking for work? No 06/21/2022 Digital Access Answer Date Recorded No 07/11/2024 Yes 07/11/2024 Do you have reliable internet access at home? Ye s 07/11/2024 Do you have a device (e.g., phone, tablet, computer) with a working camera? Yes 07/11/2024 Intimate Partner Violence Answer Date R ecorded Denied Basic Needs Not on file 07/11/2024 In the past 12 months have y ou been in a relationship with a person who hurts, threatens, or tries to control you? No 07/11/2024 Worried food would run out Not on file 07/11 In the past 12 months have y ou been in a relationship with a person who hurts, threatens, or tries to control you? No 07/11/2024 Comments Unknown Sex and Gender Information Value Date Recorded Sex Assigned at Female 01/13/2021 2:05 PM EDT Legal Sex Female 2:20 PM EST Gender Identity Female 01/13/2021 2:05 PM EDT Sexual Orientation Straight 01/13/2021 2: 05 PM EDT Last Filed Vital Signs Vital Sign Reading Time Taken Comments Blood Pressure 143/84 02/11/2025 10:13 AM EDT Pulse 52 02/11/2025 10:13 AM EDT Temperature 36.3 C (97.3 F) 02/11/2025 10:13 AM EDT Respiratory Rate 16 12/03/2021 1:11 PM EDT Oxygen Saturation 99% 07/11/2024 9:27 AM EST Inhaled Oxygen Concentration - - Weight 49 kg (108 lb) 02/11/2025 10:13 AM EDT Height 163.8 cm (5' 4.5 ) 07/11/2024 9:27 AM EST Body Mass Index 18.25 07/11/2024 9:27 AM EST Plan of Treatment Upcoming Encounters Date Type Department Care Team (Late st Contact Info) Description 03/01/2025 9:00 AM EDT Office Visit [facility] [address] [place] [address] Barbie Luna MD [address] [facility] 3rd [place] [address] [email or web address] 07/22/2025 8:40 AM EST Office Visit [facility] [address] [facility] [address] [place] [address] Kamille Bianchi MD, MPH [address] [facility] [place] [place] [address] [email or web address] Health Maintenance Due Date Last Done Comments HEPATITIS C SCREENING 1967 COLOGUARD 1994 FIT TEST 1994 FOBT 1994 SIGMOIDOSCOPY 1994 VIRTUAL COLONOSCOPY 1994 COLONOSCOPY 06/24/2022 06/24/2017 COLORECTAL CANCER SCREENING 06/24/2022 COVID-19 VACCINE ( season) 2024 04/27/2024, 05/05/2023, 04/19/2022, Additional history exists DEPRESSION SCREENING 07/11/2025 07/11/2024 LIPID PANEL 07/06/2027 07/06/2022, 12/24, 01/12/2019, Additional history exists Adult Td,Tdap Booster 12/27/2028 12/27/2018, 012 HEPATITIS A VACCINES Aged Out 06/09/2017 No long er eligible based on patient's age to complete this topic PNEUMOCOCCAL VACCINES (50+ years) Completed 03/30/2019, 02/26/2016, 07/25/2015, Additional history exists ZOSTER VACCINES Completed 05/14/2019, 01/22, 10/09/2012, Additional history exists RSV VACCINE Completed 07/28/2023 OSTEOPOROSIS SCREENING INITIAL (ONE-TIME) Completed 08/22/2024, 07/13/2022, 02/01/2019 SMOKING STATUS SCREENING (Once After 26 Yrs) Completed 02/11/2025 HIB VACCINES Aged Out No longer eligi ble based on patient's age to complete this topic MENINGOCOCCAL VACCINES (ACWY) Aged Out No longer eligible based on patient's age to complete this topic MENINGOCOCCAL VACCINES (B) Aged Out N o longer eligible based on patient's age to complete this topic Medical Devices Not on file Procedures Procedure Name Priority Date/Time Associated Diagnosis Comments BD DXA MONITORING Routine 08/22/2024 1:2 6 PM EST Osteopenia of multiple sites OUTSIDE HDL Routine 01/12/2019 COLONOSCOPY FOR RESULT ENTRY ONLY Routine 06/24/2017 from Last 3 Months or Most Recently Relevant to Health Maintenance Results * DXA Monitoring (08/22/2024 1:26 PM EST) Anatomical Region Laterality Modality Bone Density Bone Density Kamille Bianchi MD, MPH IMG BD BONE DENSITY DEXA Final Result * Outside HDL (01/12/2019) HDL - External 75 40 - 80 mg/dL Historical Provider LAB BLOOD ORDERABLES Fe l Result * COLONOSCOPY FOR RESULT ENTRY ONLY (06/24/2017) Pathologist [facility] Colonoscopy 5 yrs Historical Provider HEALTH MAINTENANCE Final Result from Last 3 Months or Most Recently Relevant to Health Maintenance Insurance MEDICARE PART A [place] [address] [place] [address] [employer] MED[employer] SUPPLEMENT MEDICARE PART A & B Member Subscriber Plan / Payer ( fective 2014-Present) Name:Israel Joana Member ID:[id number] Relation to Subscriber:Self Name:Joana Wood Subscriber ID:[id number] Payer ID:[id number] Group ID:Not on file Type:Medicare Address: [employer] [address] [facility] MEDICARE SUPPLEMENT MEDICARE PART A & B Analy[employer] Re [employer] MEDICARE SUPPLEMENT MEDICARE PART A & B [facility] [employer] MEDICARE SUPPLEMENT MEDICARE PART A & B [employer] MEDICARE SUPPLEMENT MEDICARE PART A & B [employer] MEDICARE SUPPLEMENT MEDICARE PART A & B [facility] MEDICARE SUPPLEMENT MEDICARE PART A & B Member Subscriber Plan / Payer (Ef fective 2014-Present) Name:Joana Wood Member ID:[id number] Relation to Subscriber:Self Name:Joana Wood Subscriber ID:[id number] Payer ID:[id number] Group ID:Not on file Type:Medicare Address: [employer] [address] [place] [phone] [facility] MEDICARE SUPPLEMENT MEDICARE PART A & B [facility] [employer] MEDICARE SUPPLEMENT MEDICARE PART A & B [facility] [employer] MEDICARE SUPPLEMENT Advance Directives For more information, please contact: [phone] (9AM - 5PM [facility], Tuesday-Tuesday) Documents on File Type Date Recorded Patient Blocker Hand Expl anation Healthcare Proxy 08/07/2024 Care Teams Abrasive Wheel Molder Relationship Specialty Start Date End Date Kamille Bianchi MD, MPH [address] [address] [email or web address] PCP - General Family Medicine 11/14/20 Christopher Muse MD [address] [place] [address] Dermatology 06/28/22 Yong Ortiz MD [address] [place] [address] Drive [address] [place] [address] Gastroenterology 06/28/22 Kamille Bianchi MD, MPH [address] [address] [email or web address] Insurance Assigned Provider 10/29/23 Additional Source Comments The information contained in this document represents components of the legal health record. It is not the complete legal health record.[facility]
--- OUTSIDE RECORDS SUMMARY | 2025-02-13 07:30 | XMS_ITS | Patient Health Record ---
Author Organization [facility] Address [address] [place] [address] Care Team Providers Care Internal Medicine Specialist Name Role Phone MARYBEL ALBERTS DO Primary Care Provider Yong Calderon Unavailable [phone] ONEL BARNETT Unavailable Unavailable Allergies No Known Allergies Results Component Value Reference Range Notes Calprotectin, Fecal Reviewed date:07/07/2024 09:32:11 AM Interpretation: Performing Lab:[facility], [address] [place] [id number] Notes/Report: Calprotectin, Fecal 55 Reference Range: <50 [...] borderline values. THIS TEST WAS PERFORMED AT: [facility] [address] [place] [address] CINTHIA LOPEZ MD,PHD,[facility] PANEL Reviewed date:05/29/2024 09:00:49 AM Interpretation: Performing Lab:[address] [phone] Notes/Report: Campylobacter Not Detected Not Detect. Plesiomonas [...] is performed by Multiplexed PCR, utilizing the [employer] Array. Leukocytes Stool Qualitative Reviewed date:05/28/2024 02:38:08 PM Interpretation: Performing Lab:[address] [phone] Notes/Report: Leukocytes Stool Qualitative NEGATIVE NEGATIVE CDiff Gene PCR Reviewed date:05/28/2024 10:48:07 PM Interpretation: Performing Lab:[address] [address] Notes/Report: CDiff Gene PCR TNP Negative INVALID X2. NOTIFIED TAYLOR FROM PROVIDER'S OFFICE 05/28 AT 1518. Reason For Referral No Information Medications Medication SIG (Take, Route, Fr equency, Duration) Notes Start Date End Date Status Vitamin D 1000 UNIT 1 tablet Orally Once a day Active Immunizations Vaccine Route Administration Date Status Comme nts Influenza Unknown 03/25/2017 Administered Influenza Unknown 04/24/2020 Administered Social History Tobacco Use: Social History Observation Description Date Details (start date - stop date) Never Smoker NA - NA Tobacco Use/Smoking Question Answer Notes Patient is [...] Never (0 point) Points 4 Interpretation Positive Section Notes: Nonsmoker; 1 glass of wine Q D Nonsmoker; 1 glass of wine Q D Nonsmoker; 1 glass of wine Q D Nonsmoker; 1 glass of wine Q D Nonsmoker; 1 glass of wine Q D Problems Problem Type SNOMED Code ICD Code Onset Dates Problem Status W/U Status Risk Notes Problem Diarrhea (52339283) Diarrhea (R19.7) Active confirmed Problem Change in bowel habit (27338851) Change in bowel habits (R19.4) Active confirmed Problem 35717003 Weight loss (R63.4) Active confirmed Problem Incontinence of feces (90292835) Full incontinence of feces (R15.9) Active confirmed Problem 63905703 Blood in stool (K92.1) Active confirmed Problem 273483092 Abdominal cramps (R10.9) Active confirmed Problem 364557416 Acute colitis (K52.9) Active confirmed Problem 05416983 Diarrhea, unspecified type (R19.7) Active confirmed Problem Chronic diarrhea (399545819) Chronic diarrhea (K52.9) Active confirmed Problem 484745995253332 Fecal soiling due to fecal incontinence (R15.9) Active confirmed Encounters Encounter Location Date Provider Diagnosis [facility] [address] [place] [phone] 01/30/2025 Yong Ortiz [facility] [address] [place] [phone] 05/24/2024 Yong Ortiz Diarrhea R19.7 [facility] [address] [place] [phone] 05/28/2024 Yong Ortiz Chronic diarrhea K52.9 [facility] [address] [place] [address] 05/28/2024 Yong Ortiz Assessments Encounter Date Diagnosis (ICD Code) Assessment Notes Treatment Notes Treatment Clinical Notes Section Notes 05/24/2024 Diarrhea (ICD-10 - R19.7) 05/28/2024 Chronic diarrhea (ICD-10 - K52.9) Plan Of Treatment Pending Test Test Name Order Date LIVER PROFILE 07/12/2017 LIVER PROFILE 08/24/2020 CRP 07/12/2017 CRP 08/24/2020 CBC w DIFF 08/24/2020 CBC with MANUAL DIFFERENTIAL 07/12/2017 SED RATE (ESR) 07/12/2017 SED RATE (ESR) 08/24/2020 CELIAC PANEL #10 07/12/2017 GIARDIA AG, STOOL EIA 08/24/2020 OVA & PARASITES (O&P) 08/24/2020 CULTURE, STOOL 08/24/2020 STOOL WBC 05/24/2024 STOOL WBC 08/24/2020 C DIFFICILE RFLX PCR 08/24/2020 C DIFFICILE RFLX PCR 05/24/2024 C DIFFICILE RFLX PCR 05/28/2024 Future Test Test Name Order Date COLONOSCOPY 07/07/2017 COLONOSCOPY 08/27/2020 Insurance Providers Payer Name Payer Address Payer Phone Subscriber Number Group Number Insured Name Patient Relationship to Insured Coverage Start Date Coverage End Date MEDICARE OF [place] [address] [place] [address] [id number] JAZMINE LERNER Self - patient is the insured [facility] [employer] [address] [place] [address] [id number] JAZMINE LERNER Self - patient is the insured Medical (General) History Medical History History ICD Code Denies [place],DM,CVA,Lung disease,renal dise ase Acute colitis-admitted to [facility] on 06/24/17--CT scan showed evidence of apparent colitis extending from the rectum to the distal transverse colon--- stool specimens were not collected--she was treated with Levaquin and Flagyl--- a colonoscopy later in 06/2017 was completely normal, including biopsies--there was no evidence of any ongoing colitis. Screening Colonoscopy in 201 4 in [place]--told of polyps and need to repeat the exam in 5 years Negative colonoscopy in 09/13 21 except for decreased sphincer tone, internal/external hemorhoids, and diverticulosis Negtive antigliadin antibodies in 2017 Surgical History Surgery Date(Month/Year)
== END 2025-02-13 07:29 | disposition home or self-care (01) ==
LOC: HO.MAMMO 07:28
PROVIDERS: PCP Family Medicine; Visit Provider Family Medicine
DX: Z12.31 Encounter for screening mammogram for malignant neoplasm of breast (principal)
CPT/HCPCS: 77063; 77067

== ENCOUNTER → 2025-02-13 07:30 | Outpatient (BNV) | payer MEDICARE, OTHER, SELFPAY | PROVIDERS: PCP Family Medicine; Visit Provider Radiology Body Imaging | DX: Z12.31 Encounter for screening mammogram for malignant neoplasm of breast (principal) | CPT/HCPCS: 77063; 77067 ==